=== PATIENT | male | born 1980 | race Caucasian/White ===

== ENCOUNTER 2016-11-12 06:23 | Emergency (ER) | payer OTHER ==
[~2016-11-12] VITALS: Ht 180.3 cm; Wt 155.1 kg
[2016-11-12] MEDS ORDERED: ARMOUR THYROID300 MG PO (07:04)
[2016-11-12 07:07] LABS: ABSOLUTE NEUTROPHILS 4.5 thou/uL (1.4-8.2); BASOPHILS 0.7 % (0.0-2.0); EOSINOPHILS 1.7 % (0.0-3.0); HEMATOCRIT 45.8 % (42.0-52.0); HEMOGLOBIN 15.3 gm/dL (14.0-18.0); LYMPHOCYTES 14.3 % (24.0-44.0); MCH 28.4 pg (26.0-34.0); MCHC 33.4 g/dL (28.0-37.0); MONOCYTES 6.7 % (1.0-8.0); PLATELET COUNT 137 thou/uL (150-400); POLYS 76.6 % (36.0-66.0); RBC 5.39 mil/uL (4.50-6.00); WBC 5.9 thou/uL (4.0-11.0)
[2016-11-12 07:10] LABS: MANUAL DIFF NO
[2016-11-12 07:13] LABS: CALCIUM 8.8 mg/dL (8.5-10.1); CREATININE 1.1 mg/dL (0.7-1.3); POTASSIUM 3.8 mmol/L (3.5-5.1)
[2016-11-12 07:18] LABS: ALBUMIN 3.7 g/dL (3.4-5.0); TOTAL BILIRUBIN 0.6 mg/dL (<0.1-1.0); TOTAL PROTEIN 7.5 g/dL (6.4-8.2)
[2016-11-12 08:20] LABS: URINE BILIRUBIN NEGATIVE (Negative); URINE BLOOD NEGATIVE (Negative); URINE COLOR YELLOW; URINE GLUCOSE-RANDOM* NEGATIVE (Negative); URINE KETONES NEGATIVE (Negative); URINE LEUKOCYTES-REFLEX NEGATIVE (Negative); URINE PROTEIN (DIPSTICK) NEGATIVE (Negative); URINE SPECIFIC GRAVITY 1.015 (1.003-1.035); URINE UROBILINOGEN 0.2 E.U./dl (0.2-1.0)
[2016-11-12] MEDS ORDERED: NAPROSYN500 MG PO (08:35)
[2016-11-12 08:56] VITALS: BP 136/92
== END 2016-11-12 08:59 | disposition home or self-care (01) ==
LOC: ER 06:23
PROVIDERS: Emergency Medicine
DX: S39.011A Strain of muscle, fascia and tendon of abdomen, initial encounter (principal); Z90.49 Acquired absence of other specified parts of digestive tract; E03.9 Hypothyroidism, unspecified; Z88.7 Allergy status to serum and vaccine; X58.XXXA Exposure to other specified factors, initial encounter; Y93.89 Activity, other specified; Y92.89 Other specified places as the place of occurrence of the external cause; Y99.8 Other external cause status

== ENCOUNTER 2017-09-03 17:07 | Inpatient (IN) | payer OTHER ==
[~2017-09-03] VITALS: Ht 180.3 cm; Wt 155.5 kg
--- NOTE | ~2017-09-03 | D ---
[facility] [address] [place] [address] DISCHARGE SUMMARY Name: PARKER MATHUR Room #: 448-P [facility] IN M.R.#: [id number] Admission: 09/03/17 Attend Phys: Cara Eason MD Discharge: 09/06/17 Date of : 76 Report #: [id number] THIS REPORT FOR: //name// CC: [facility] physician/PCP Cara Eason DATE OF SERVICE: 09/06/2017 HISTORY OF PRESENT ILLNESS: The patient is a 37-year-old healthy man who came to the hospital with sudden onset of dizziness, nausea and vomiting. Please refer to admission H and P for details. HOSPITALIZATION COURSE: The patient was hospitalized for vertigo, and related problems, including nausea and vomiting. He was started on symptomatic treatment. Symptoms have improved. ENT was consulted. The patient had CT scan of the brain, as well as MRI, that were unremarkable. Findings were most consistent with labyrinthitis, but the patient's presentation was also consistent with positioning vertigo. The patient had good response with Valium and meclizine. His nausea and vomiting has resolved. However, the patient still remained mildly symptomatic. He was seen and evaluated by physical therapist. The patient is safe to go home. He was advised to stay at home for next few days, and avoid driving. The patient will be discharged home later today, on close outpatient followup. DISCHARGE DIAGNOSES: 1. Acute onset of vertigo, clinically much better. Most likely etiology viral labyrinthitis, with component of positioning vertigo. Unremarkable imaging studies, including MRI of the brain as detailed above. 2. Nausea and vomiting due to above, resolved. DISCHARGE MEDICATIONS: Valium, meclizine, p.r.n. Side effects and proper use explained. FOLLOWUP PLAN: Follow up with the primary care physician in 1-2 weeks. <ELECTRONICALLY SIGNED> By: Cara Eason MD 09/09/17 1410 [id number] Cara Eason MD /nt
--- NOTE | ~2017-09-03 | EKG ---
[place] [address] [email or web address] [address] ELECTROCARDIOGRAM REPORT Name: MATHURPARKER Room #: 448-P ADM IN M.R.#: [id number] Admission: 09/03/17 Attend Phys: Cara Eason MD Discharge: Date of : 76 Report #: [id number] THIS REPORT FOR: //name// [facility] ED Test Date: 2017-09-03 Test Time: 17:21:32 Pat Name: PARKER MATHUR Department: Room: [facility] Gender: M Chemistry Laboratory Technician: OSMIN : [id number] Requested By: Abdi Haddad Order Number: [id number] MD: Albert Fuentes Measurements Intervals [place] Rate: 74 P: 64 DC: 164 QRS: -17 QRSD: 107 T: 12 QT: 420 QTc: 466 Interpretive Statements Sinus rhythm RSR' in V1 or V2, right VCD Baseline wander in lead(s) V5 No previous ECG available for comparison Electronically Signed On 09-04-2017 9:01:19 [employer]CIAL [employer] ADVIS[employer] by Albert Fuentes [email or web address] <ELECTRONICALLY SIGNED> By: Albert Fuentes MD, [facility] 09/04/17 0901 20 20 Albert Fuentes MD, [facility] /EPI
[~2017-09-03 17:07] MED LIST: ARMOUR THYROID300 MG PO; NAPROSYN500 MG PO
[2017-09-03 17:08] VITALS: BP 143/96
[2017-09-03 17:39] LABS: BASOPHILS 1.2 % (0.0-2.0); EOSINOPHILS 3.1 % (0.0-3.0); HEMATOCRIT 43.1 % (42.0-52.0); HEMOGLOBIN 14.7 gm/dL (14.0-18.0); LYMPHOCYTES 21.3 % (24.0-44.0); MCH 29.1 pg (26.0-34.0); MCHC 34.1 g/dL (28.0-37.0); MCV 85.6 fL (80.0-100.0); MONOCYTES 6.6 % (1.0-8.0); PLATELET COUNT 128 thou/uL (150-400); POLYS 67.8 % (36.0-66.0); RBC 5.04 mil/uL (4.50-6.00); RDW 14.3 % (10.5-14.5); WBC 5.9 thou/uL (4.0-11.0)
[2017-09-03 17:50] LABS: ANION GAP 8 mmol/L (7-16); BUN 14 mg/dL (7-18); CALCIUM 9.2 mg/dL (8.5-10.1); CHLORIDE 105 mmol/L (98-107); CO2 27 mmol/L (21-32); GLUCOSE 102 mg/dL (74-106); POTASSIUM 3.6 mmol/L (3.5-5.1); SODIUM 140 mmol/L (136-145)
[2017-09-03 17:58] LABS: ALBUMIN 3.8 g/dL (3.4-5.0); LIPASE 213 U/L (73-393); SGOT 27 U/L (15-37); SGPT 50 U/L (30-65); TOTAL BILIRUBIN 0.3 mg/dL (<0.1-1.0); TOTAL PROTEIN 7.2 g/dL (6.4-8.2); TROPONIN-I < 0.04 ng/mL (<0.06)
[2017-09-03 20:37] VITALS: BP 137/72
[2017-09-03 20:56] VITALS: BP 144/86
[2017-09-04 04:04] VITALS: BP 118/66
[2017-09-04 08:00] VITALS: BP 130/68
[2017-09-04 16:00] VITALS: BP 129/57
[2017-09-04 20:06] VITALS: BP 146/74
[2017-09-05 04:47] VITALS: BP 106/57
[2017-09-05 07:56] VITALS: BP 119/65
[2017-09-05 15:45] VITALS: BP 129/64
[2017-09-05 19:21] VITALS: BP 122/60
[2017-09-06 03:44] VITALS: BP 125/70
[2017-09-06 08:00] VITALS: BP 129/78
[2017-09-06] MEDS ORDERED: DIAZEPAM 10 MG10 M1 PO (15:09)
[2017-09-06] MEDS ORDERED: ZOFRAN4 MG PO (15:09)
[2017-09-06] MEDS ORDERED: NP THYROID30 MG PO (15:09)
[2017-09-06] MEDS ORDERED: ANTIVERT25 MG PO (15:09)
[2017-09-06 15:16] VITALS: BP 129/78
== END 2017-09-06 16:35 | disposition home or self-care (01) | DRG 149 ==
LOC: ER 17:07 → EROBS 20:06 → 4S 20:06 → ENTRNSPT 09-06 16:33 → 4S 09-06 16:35
PROVIDERS: Physician Assistant
DX: H83.09 Labyrinthitis, unspecified ear (principal); E03.9 Hypothyroidism, unspecified; Z79.899 Other long term (current) drug therapy; Z88.7 Allergy status to serum and vaccine; Z90.49 Acquired absence of other specified parts of digestive tract; Z82.49 Family history of ischemic heart disease and other diseases of the circulatory system
CPT/HCPCS: 10100